=== PATIENT | female | born 1970 | race Two or more races ===

== ENCOUNTER → 2021-09-07 | Outpatient (CLI) | payer OTHER ==
--- NOTE | 2021-09-07 13:11 | KCIC ---
EXAM: CT coronary artery calcium screening; radiologist over read. HISTORY: Cardiovascular screening. TECHNIQUE: Computed tomographic images of the chest were obtained without contrast. Multiplanar refor matting was performed. *One or more of the following individualized dose reduction techniques were utilized for this examina tion: 1. Automated exposure control. 2. Adjustment of the mA and/or kV according to patient size. 3. Use of iterative reconstruction technique. COMPARISON: None. FINDINGS: There is calcified atherosclerotic plaque involving the coronary arteries. The heart is nor mal in size. The aorta is normal in caliber. There is no lymphadenopathy. There is no infiltrate, ple ural effusion or pneumothorax. There is no suspicious pulmonary nodule. There is no acute finding inv olving the upper abdomen or osseous structures. Coronary artery calcium score: Left main artery - 0 Left anterior descending - 37.1 Left circumflex - 0 Right coronary artery - 79.2 Posterior descending artery - 0 TOTAL = 116.3 IMPRESSION: 1. Calcified atherosclerotic plaque involving the coronary arteries. The coronary artery calcium scor e is 116.3. This is consistent with moderate atherosclerotic plaque. 2. No significant incidental thoracic finding. Electronically signed by: Tri Bravo MD (09/07/2021 1:09 PM) [id number]
== END ==
LOC: KCIC CT 12:28
PROVIDERS: ATTEND Internal Medicine Critical Care Medicine
DX: I25.10 Atherosclerotic heart disease of native coronary artery without angina pectoris (principal)
CPT/HCPCS: 75571